=== PATIENT | male | born 1950 | race Caucasian/White ===

== ENCOUNTER 2025-03-07 09:57 | Inpatient (IN) | payer MEDICARE ==
[~2025-03-07] VITALS: Ht 172.7 cm; Wt 64.5 kg
[~2025-03-07 09:57] MED LIST: CEFT2VIA64 IV
[2025-03-07 11:08] LABS: BASOPHILS # (AUTO) 0.1 K/uL (0.0-0.2); BASOPHILS % (AUTO) 1.1 % (0.0-2.0); EOSINOPHILS # (AUTO) 0.1 K/uL (0.0-0.7); EOSINOPHILS % (AUTO) 2.1 % (0.0-6.0); HEMATOCRIT 34 % (39-51); HEMOGLOBIN 11.9 g/dL (13.5-17.5); LYMPHOCYTES # (AUTO) 0.9 K/uL (0.8-4.8); LYMPHOCYTES % (AUTO) 12.8 % (20.0-44.0); MEAN CORPUSCULAR HEMOGLOBIN 32 PG (26.0-33.0); MEAN CORPUSCULAR HGB CONC 35 g/dl (31.0-36.0); MEAN CORPUSCULAR VOLUME 91 fL (80-96); MONOCYTES # (AUTO) 0.7 K/uL (0.1-1.30); MONOCYTES % (AUTO) 9.8 % (2.0-12.0); NEUTROPHILS # (AUTO) 5.2 K/uL (1.8-8.9); NEUTROPHILS % (AUTO) 74.2 % (43.0-81.0); PLATELET COUNT (AUTO) 469 K/uL (150-450); RED BLOOD CELL COUNT(AUTO) 3.77 MIL/uL (4.5-6.0); RED CELL DISTRIBUTION WIDTH 15.3 % (11.5-15.0)
[2025-03-07 11:14] LABS: CALCIUM, SERUM 8.8 mg/dL (8.5-10.1); CREATININE 0.8 mg/dL (0.6-1.3); POTASSIUM 3.5 mmol/L (3.5-5.1)
[2025-03-07 11:20] LABS: INR 1.05 (0.91-1.10); PROTHROMBIN TIME 11.1 SECS (9.2-11.1)
[2025-03-07 11:47] LABS: EOSINOPHILS % (MANUAL) 1 % (0-4); LYMPHOCYTES % (MANUAL) 15 % (16-48); MONOCYTES % (MANUAL) 10 % (0-11.0); NEUTROPHILS % (MANUAL) 74 (42-76); PLATELET ESTIMATE ADEQUATE
[2025-03-07 11:48] LABS: ANISOCYTOSIS 1+
[2025-03-07 11:54] LABS: APPEARANCE,URINE CLEAR (CLEAR); BILIRUBIN,URINE NEGATIVE (NEGATIVE); BLOOD, URINE NEGATIVE Ery/uL (NEGATIVE); COLOR,URINE STRAW (YELLOW); KETONES,URINE NEGATIVE (NEGATIVE); LEUKOCYTE ESTERASE ,URINE 1+ (NEGATIVE); NITRITE, URINE NEGATIVE (NEGATIVE); PROTEIN,URINE NEGATIVE (NEGATIVE); UGLUCOSE NEGATIVE (NEGATIVE); UROBILINOGEN,URINE 0.2 EU/dL (0.2)
[2025-03-07 12:16] LABS: ADD URINE CULTURE YES; BACTERIA,URINE Few /HPF (None Seen); RBC,URINE 0-2 /HPF (0-2); SQUAMOUS EPITHELIAL CELL,UR Moderate /HPF (None Seen)
[2025-03-07] MEDS: CEFTRIAXONE 1GM BAG (ER ONLY) 1 GM/50 ML PIGGYBACK IV ONE (12:30)
[2025-03-07] MEDS ORDERED: LEVE100S PO (12:52)
[2025-03-07] MEDS ORDERED: OLAN7.5T3 PO (12:52)
[2025-03-07] MEDS ORDERED: MELA3TAB41 PO (12:52)
[2025-03-07] MEDS ORDERED: CRAN300T PO (12:52)
[2025-03-07] MEDS ORDERED: MAGN400O6 PO (12:52)
[2025-03-07] MEDS ORDERED: ACET325T53 PO (12:52)
[2025-03-07] MEDS ORDERED: ACET-73 PO (12:52)
[2025-03-07] MEDS ORDERED: OMEP20CA15 PO (12:52)
[2025-03-07] MEDS ORDERED: LEVO125T8 PO (12:52)
[2025-03-07] MEDS ORDERED: IPRA3AMP23 IH (12:52)
[2025-03-07] MEDS ORDERED: ACETAMINOPHEN 325 MG TABLET PO PRN (13:00)
[2025-03-07] MEDS ORDERED: ONDANSETRON HCL/PF 4 MG/2 ML VIAL IVP PRN (13:00)
[2025-03-07] MEDS: CEFTRIAXONE 1 G VIAL IM ONE (13:00)
[2025-03-07 14:30] VITALS: BP 137/83; TEMP 98.1; O2SAT 97
[2025-03-07 16:00] VITALS: BP 135/81; TEMP 97.9; O2SAT 97
[2025-03-07] MEDS: LEVETIRACETAM SOL (5 ML) 100 MG/ML UDC PO SCH (17:52)
[2025-03-07 18:00] VITALS: BP 137/83; TEMP 97.3; O2SAT 97
[2025-03-07 20:00] VITALS: BP 119/71; TEMP 98.2; O2SAT 99
[2025-03-07] MEDS: OLANZAPINE 10 MG TABLET PO SCH (20:18)
[2025-03-07] MEDS: DIVALPROEX SODIUM 125 MG TABLET.DR PO ONE (22:11)
[2025-03-08 06:33] LABS: BASOPHILS # (AUTO) 0.1 K/uL (0.0-0.2); BASOPHILS % (AUTO) 0.7 % (0.0-2.0); EOSINOPHILS # (AUTO) 0.4 K/uL (0.0-0.7); EOSINOPHILS % (AUTO) 4.3 % (0.0-6.0); HEMATOCRIT 35 % (39-51); HEMOGLOBIN 12.2 g/dL (13.5-17.5); LYMPHOCYTES # (AUTO) 1.5 K/uL (0.8-4.8); LYMPHOCYTES % (AUTO) 17.5 % (20.0-44.0); MEAN CORPUSCULAR HEMOGLOBIN 32 PG (26.0-33.0); MEAN CORPUSCULAR HGB CONC 35 g/dl (31.0-36.0); MEAN CORPUSCULAR VOLUME 91 fL (80-96); MONOCYTES # (AUTO) 0.8 K/uL (0.1-1.30); MONOCYTES % (AUTO) 9.5 % (2.0-12.0); NEUTROPHILS # (AUTO) 5.9 K/uL (1.8-8.9); PLATELET COUNT (AUTO) 535 K/uL (150-450); RED BLOOD CELL COUNT(AUTO) 3.87 MIL/uL (4.5-6.0); RED CELL DISTRIBUTION WIDTH 14.8 % (11.5-15.0); WHITE BLOOD COUNT (AUTO) 8.6 K/uL (4.3-11.0)
[2025-03-08 06:50] LABS: CALCIUM, SERUM 8.8 mg/dL (8.5-10.1); CREATININE 1.1 mg/dL (0.6-1.3); MAGNESIUM 2.1 mg/dL (1.8-2.4); POTASSIUM 3.4 mmol/L (3.5-5.1)
[2025-03-08 08:00] VITALS: BP 107/72; TEMP 98.6; O2SAT 99
[2025-03-08] MEDS: LEVOTHYROXINE SODIUM 125 MCG TABLET PO SCH (08:30)
[2025-03-08] MEDS: PANTOPRAZOLE 40 MG TABLET.DR PO SCH (08:30)
[2025-03-08] MEDS: LEVETIRACETAM (250 MG) 250 MG TABLET PO SCH (08:30)
[2025-03-08] MEDS: DIVALPROEX SODIUM 125 MG TABLET.DR PO SCH ×2 (08:30→21:22)
[2025-03-08] MEDS ORDERED: CEFTRIAXONE 2 G in IV D5W 50 ML IV ONE (09:00)
[2025-03-08] MEDS: POTASSIUM CHLORIDE 20 MEQ TAB.PRT.SR PO SCH (10:25)
[2025-03-08] MEDS: TAMSULOSIN 0.4 MG CAP.SR.24H PO SCH (10:25)
[2025-03-08] MEDS ORDERED: CEFTRIAXONE 2 G in IV D5W 100 ML IV SCH (13:00)
[2025-03-08] MEDS: OLANZAPINE 10 MG VIAL IM STA (13:33)
[2025-03-08 16:00] VITALS: BP 101/72; TEMP 98.6; O2SAT 97
[2025-03-08] MEDS: CEFDINIR 300 MG CAPSULE PO SCH (16:14)
[2025-03-08] MEDS: OLANZAPINE 10 MG TABLET PO SCH (21:22)
[2025-03-08 22:00] VITALS: BP 107/76; TEMP 98.4; O2SAT 100
[2025-03-09 04:00] VITALS: BP 99/61; TEMP 98.7; O2SAT 100
[2025-03-09 06:45] LABS: BASOPHILS # (AUTO) 0.1 K/uL (0.0-0.2); EOSINOPHILS # (AUTO) 0.4 K/uL (0.0-0.7); HEMATOCRIT 33 % (39-51); HEMOGLOBIN 11.4 g/dL (13.5-17.5); LYMPHOCYTES # (AUTO) 1.1 K/uL (0.8-4.8); MEAN CORPUSCULAR HEMOGLOBIN 32 PG (26.0-33.0); MEAN CORPUSCULAR HGB CONC 35 g/dl (31.0-36.0); MEAN CORPUSCULAR VOLUME 91 fL (80-96); MONOCYTES # (AUTO) 0.6 K/uL (0.1-1.30); MONOCYTES % (AUTO) 9.9 % (2.0-12.0); NEUTROPHILS # (AUTO) 4.2 K/uL (1.8-8.9); NEUTROPHILS % (AUTO) 66.1 % (43.0-81.0); PLATELET COUNT (AUTO) 485 K/uL (150-450); RED BLOOD CELL COUNT(AUTO) 3.56 MIL/uL (4.5-6.0); RED CELL DISTRIBUTION WIDTH 15.6 % (11.5-15.0); WHITE BLOOD COUNT (AUTO) 6.4 K/uL (4.3-11.0)
[2025-03-09] MEDS ORDERED: LEVOTHYROXINE SODIUM 25 MCG TABLET PO SCH (07:30)
[2025-03-09 07:32] LABS: CALCIUM, SERUM 8.7 mg/dL (8.5-10.1); CREATININE 0.9 mg/dL (0.6-1.3); MAGNESIUM 2.3 mg/dL (1.8-2.4); PHOSPHORUS 3.6 mg/dL (2.5-4.9)
[2025-03-09 08:00] VITALS: BP 110/73; TEMP 97.8; O2SAT 98
[2025-03-09 11:29] LABS: EOSINOPHILS % (MANUAL) 2 % (0-4); LYMPHOCYTES % (MANUAL) 14 % (16-48); MONOCYTES % (MANUAL) 5 % (0-11.0); NEUTROPHILS % (MANUAL) 79 (42-76); PLATELET ESTIMATE INCREASED
[2025-03-09 11:30] LABS: ANISOCYTOSIS 1+
[2025-03-09 16:00] VITALS: BP 103/81; TEMP 98.6; O2SAT 98
[2025-03-09] MEDS ORDERED: IOHEXOL-300 100 ML VIAL IV ONE (19:18)
[2025-03-09] MEDS ORDERED: IV NS 0.9% 250 ML IV ONE (19:18)
[2025-03-09 19:40] VITALS: BP 96/70; TEMP 97.7; O2SAT 97
[2025-03-10 06:37] LABS: BASOPHILS # (AUTO) 0.1 K/uL (0.0-0.2); BASOPHILS % (AUTO) 0.9 % (0.0-2.0); EOSINOPHILS # (AUTO) 0.4 K/uL (0.0-0.7); EOSINOPHILS % (AUTO) 5.3 % (0.0-6.0); HEMATOCRIT 33 % (39-51); HEMOGLOBIN 11.2 g/dL (13.5-17.5); LYMPHOCYTES # (AUTO) 1.4 K/uL (0.8-4.8); LYMPHOCYTES % (AUTO) 17.1 % (20.0-44.0); MEAN CORPUSCULAR HEMOGLOBIN 31 PG (26.0-33.0); MEAN CORPUSCULAR HGB CONC 34 g/dl (31.0-36.0); MEAN CORPUSCULAR VOLUME 92 fL (80-96); MONOCYTES # (AUTO) 0.6 K/uL (0.1-1.30); MONOCYTES % (AUTO) 7.9 % (2.0-12.0); NEUTROPHILS # (AUTO) 5.6 K/uL (1.8-8.9); NEUTROPHILS % (AUTO) 68.8 % (43.0-81.0); PLATELET COUNT (AUTO) 496 K/uL (150-450); RED CELL DISTRIBUTION WIDTH 15.6 % (11.5-15.0); WHITE BLOOD COUNT (AUTO) 8.1 K/uL (4.3-11.0)
[2025-03-10 07:00] VITALS: BP 100/61; TEMP 97.4; TEMP 97.5; O2SAT 95; O2SAT 98
[2025-03-10 07:07] LABS: CALCIUM, SERUM 8.6 mg/dL (8.5-10.1); CREATININE 0.8 mg/dL (0.6-1.3); MAGNESIUM 2.1 mg/dL (1.8-2.4); PHOSPHORUS 4.2 mg/dL (2.5-4.9)
[2025-03-10] MEDS: LORAZEPAM 1 MG TABLET PO ONE (11:00)
[2025-03-10] MEDS ORDERED: GADOTERATE MEGLUMINE 10 MMOL/20 ML VIAL IV ONE (14:38)
[2025-03-10 16:00] VITALS: BP 112/70; TEMP 98.1; O2SAT 97
== END 2025-03-10 19:08 | DRG 689 ==
LOC: ER 10:03 → MED 13:14
PROVIDERS: ADMIT Nurse Practitioner Acute Care
DX: N39.0 Urinary tract infection, site not specified (principal); G93.41 Metabolic encephalopathy; I69.351 Hemiplegia and hemiparesis following cerebral infarction affecting right dominant side; F01.54 Vascular dementia, unspecified severity, with anxiety; F01.52 Vascular dementia, unspecified severity, with psychotic disturbance; G98.8 Other disorders of nervous system; B95.62 Methicillin resistant Staphylococcus aureus infection as the cause of diseases classified elsewhere; G40.909 Epilepsy, unspecified, not intractable, without status epilepticus; Z91.81 History of falling; W19.XXXA Unspecified fall, initial encounter; Y92.129 Unspecified place in nursing home as the place of occurrence of the external cause; S01.01XA Laceration without foreign body of scalp, initial encounter; E03.9 Hypothyroidism, unspecified; J43.9 Emphysema, unspecified; K21.9 Gastro-esophageal reflux disease without esophagitis; Z87.440 Personal history of urinary (tract) infections; Z86.14 Personal history of Methicillin resistant Staphylococcus aureus infection; F12.91 Cannabis use, unspecified, in remission; Z87.891 Personal history of nicotine dependence; F29 Unspecified psychosis not due to a substance or known physiological condition; F41.9 Anxiety disorder, unspecified; F39 Unspecified mood [affective] disorder; G93.89 Other specified disorders of brain; Z79.51 Long term (current) use of inhaled steroids; Z79.899 Other long term (current) drug therapy
CPT/HCPCS: 36415; 70450-TC; 70460-TC; 70553-TC; 73090-TC; 80048-TC; 81001; 83735-TC; 84100-TC; 84439-TC; 84443-TC; 84484-TC; 85025-TC; 85610-TC; 86850-TC; 87081-TC; 87086-TC; 97110-TC; 97116-TC; 97530-TC; A4223; A6253; A9575; G0378; J0696; J1953; J3490; J7050; J7060; Q9967